=== PATIENT | female | born 1990 ===

== ENCOUNTER 2018-03-18 18:05 | Emergency (ER) | payer MEDICAID ==
[2018-03-18 18:53] VITALS: RESP 18
[2018-03-18] MEDS ORDERED: cefTRIAXone (Rocephin) 250 mg Inj IM STA (19:05)
--- NOTE | 2018-03-18 19:11 | ED PDOC ---
Arrival/HPI - General Historian: Patient - History of Present Illness Narrative History of Present Illness (Text): 03/18/18 20:11 27 y/o female with no significant PMH presents to the ED for treatment of confirmed gonorrhoea cervicitis. Pt was tested at [facility] for go norrhoea and chlamydia earlier this month and was not treated. Pt had unprotected sex with a new sexual partner while waiting for results. She is experiencing mild vaginal discharge. Partner is also here to be treated. Denies fever, chills, rash, abdominal pain, N/V, diarrhea, headache, dizziness, chest pain, SOB. <Sandra Babcock - Last Filed: 03/18/18 19:51> <Ben Alcaraz - Last Filed: 03/18/18 20:21> - General Chief Complaint: Female Genitourinary Time Seen by Provider: 03/18/18 18:13 Past Medical History - Provider Review Nursing Documentation Reviewed: Yes - Infectious Disease Hx of Infectious Diseases: None - Genitourinary/Gynecological Other/Comment: ectopic - Psychiatric Hx Substance Use: No - Surgical History Other/Comment: left ovary removed. <Sandra Babcock - Last Filed: 03/18/18 19:51> Family/Social History - Physician Review Nursing Documentation Reviewed: Yes Family/Social History: No Known Family HX Smoking Status: Light Smoker < 10 Cigarettes Daily Hx Alcohol Use: No Hx Substance Use: No <Sandra Babcock - Last Filed: 03/18/18 19:51> Allergies/Home Meds <Sandra Babcock - Last Filed: 03/18/18 19:51> <Ben Alcaraz - Last Filed: 03/18/18 20:21> Allergies/Adverse Reactions: Allergies No Known Allergies Allergy (Verified 03/18/18 18:44) Home Medications: Home Meds Medication Instructions Recorded Confirmed RX: No Known Home Med 03/18/18 03/18/18 Review of Systems - Physician Review All systems were reviewed & negative as marked: Yes - Review of Systems Constitutional: Normal. absent: Fevers Eyes: Normal ENT: Normal Respiratory: Normal Cardiovascular: Normal Gastrointestinal: Normal. absent: Abdominal Pain, Nausea, Vomiting Genitourinary Female: Vaginal Discharge. absent: Dysuria, Frequency, Hematuria, Vaginal Bleeding Musculoskeletal: Normal. absent: Arthralgias, Back Pain, Neck Pain Skin: Normal. absent: Rash Neurological: Normal Hemo/Lymphatic: Normal. absent: Adenopathy <Sandra Babcock - Last Filed: 03/18/18 19:51> Physical Exam Vital Signs Temp Pulse Resp BP Pulse Ox 03/18/18 18:53 98.7 F 89 18 136/79 100 Temperature: Afebrile Blood Pressure: Normal Pulse: Regular Respiratory Rate: Normal Appearance: Positive for: Well-Appearing, Non-Toxic, Comfortable Pain Distress: None Mental Status: Positive for: Alert and Oriented X 3 - Systems Exam Mouth: Present: Moist Mucous Membranes Neck: Present: Normal Range of Motion. No: MIDLINE TENDERNESS, Paraspinal Tenderness Respiratory/Chest: Present: Clear to Auscultation, Good Air Exchange. No: Respiratory Distress, Accessory Muscle Use Cardiovascular: Present: Regular Rate and Rhythm, Normal S1, S2. No: Murmurs Abdomen: No: Tenderness, Distention, Peritoneal Signs Back: Present: Normal Inspection. No: Midline Tenderness, Paraspinal Tenderness Upper Extremity: Present: Normal Inspection, Normal ROM, NORMAL PULSES Lower Extremity: Present: Normal Inspection, Normal ROM Neurological: Present: GCS=15, CN II-XII Intact, Speech Normal Skin: Present: Warm, Dry, Normal Color. No: Rashes Lymphatic: No: Cervical Adenopathy Psychiatric: Present: Alert, Oriented x 3, Normal Insight, Normal Concentration <Sandra Babcock - Last Filed: 03/18/18 19:51> Vital Signs Temp Pulse Resp BP Pulse Ox 03/18/18 18:53 98.7 F 89 18 136/79 100 <Ben Alcaraz - Last Filed: 03/18/18 20:21> Medical Decision Making ED Course and Treatment: 03/18/18 19:08 27 y/o female with no significant PMH presents to the ED for treatment of confirmed gonorrhoea cervicitis. Pt was tested at [facility] for gonorrhoea and chlamydia earlier this month and was not treated. Pt had unprotected sex with a new sexual partner while waiting for results. She is experiencing mild vaginal discharge. Partner is also here to be treated. Denies fever, chills, rash, abdominal pain, N/V, diarrhea, headache, dizziness, chest pain, SOB. Pts documentation from [facility] reviewed. Pt tested positive for N. gonorrhoea and was not treated. will treat for G/C -1 g azithromycin PO -250mg Rocephin IM Impression: cervicitis Plan: Followup with primary doctor within 2 days Return to ED if symptoms persist or worsen - Lab Interpretations I have reviewed the lab results: Yes - Medication Orders Current Medication Orders: Azithromycin (Zithromax) 1,000 mg PO STAT STA; Protocol Stop: 03/18/18 19:05 Ceftriaxone Sodium (Rocephin) 250 mg IM STAT STA; Protocol Stop: 03/18/18 19:06 <Sandra Babcock - Last Filed: 03/18/18 19:51> - Medication Orders Current Medication Orders: Discontinued Medications Azithromycin (Zithromax) 1,000 mg PO STAT STA; Protocol Stop: 03/18/18 19:05 Last Admin: 03/18/18 19:50 Dose: 1,000 mg Ceftriaxone Sodium (Rocephin) 250 mg IM STAT STA; Protocol Stop: 03/18/18 19:06 Last Admin: 03/18/18 19:50 Dose: 250 mg IM Administration Charges Document 03/18/18 19:50 RG (Rec: 03/18/18 19:50 RG [id number]) Injection Site MAR Injection Site Left Gluteus Medius Charges for Administration # of IM Administrations 1 <Ben Alcaraz - Last Filed: 03/18/18 20:21> - PA / POLICYHOLDER INFORMATION CLERK / Resident Statement MD/ has reviewed & agrees with the documentation as recorded. <Ben Alcaraz - Last Filed: 03/18/18 20:21> Disposition/Present on Arrival - Present on Arrival Any Indicators Present on Arrival: No History of DVT/PE: No History of Uncontrolled Diabetes: No Urinary Catheter: No History of Decub. Ulcer: No History Surgical Site Infection Following: None - Disposition Have Diagnosis and Disposition been Completed?: Yes Disposition Time: 19:20 <Sandra Babcock - Last Filed: 03/18/18 19:51> <Ben Alcaraz - Last Filed: 03/18/18 20:21> - Disposition Diagnosis: Cervicitis Disposition: HOME/ ROUTINE Patient Problems: Current Active Problems Problem Status Onset Cervicitis Acute Condition: GOOD Additional Instructions: Followup with primary doctor within 2 days Return to ED if symptoms persist or worsen Referrals: PCP,NO [Primary Care Provider] - Follow up with primary Forms: [facility] (C[place] Verdean), WORK NOTE
[2018-03-18 20:29] VITALS: BP 138/70; PULSE 86; TEMP 98.8; O2SAT 99
== END 2018-03-18 19:59 | disposition home or self-care (01) ==
LOC: ED 18:05 → MERGE 18:05 → ED 19:59
DX: N72 Inflammatory disease of cervix uteri (principal)
CPT/HCPCS: 96372; 99282; J0696

== ENCOUNTER 2018-04-05 16:24 | Emergency (ER) | payer MEDICAID ==
[2018-04-05 16:24] VITALS: BMI 23.3
[2018-04-05 16:52] VITALS: TEMP 98.1
[2018-04-05] MEDS ORDERED: cefTRIAXone (Rocephin) 250 mg Inj IM STA (17:00)
--- NOTE | 2018-04-05 17:04 | ED PDOC ---
Arrival/HPI - General Chief Complaint: Medical Clearance Time Seen by Provider: 04/05/18 16:40 Historian: Patient - History of Present Illness Narrative History of Present Illness (Text): 04/05/18 17:01 27yo female with no pmhx who present to ED requesting STD test and treatment. States tested positive for STD 3weeks ago and came here for the treatment. Notes that she went back to where she had the test and was told to go to the ED for a repeat STD test to verify treatment. Notes that she also had sex with someone she is not sure of his status. States the condom broke during sex. Reports right pelvic crampy pain that started 2days after she was treatment after drinking alcohol and worried that the alcohol interfered with the medication she received here in the ED. She denies nausea, vomiting, diarrhea, vaginal discharge, vaginal bleeding, fever, chills, back pain, any other complaint. LMP March 21. Past Medical History - Provider Review Nursing Documentation Reviewed: Yes - Infectious Disease Hx of Infectious Diseases: None - Cardiac Hx Cardiac Disorders: No - Pulmonary Hx Respiratory Disorders: No - Neurological Hx Neurological Disorder: No - HEENT Hx HEENT Disorder: No - Renal Hx Renal Disorder: No - Endocrine/Metabolic Hx Endocrine Disorders: No - Hematological/Oncological Hx Blood Disorders: No - Integumentary Hx Dermatological Disorder: No - Musculoskeletal/Rheumatological Hx Musculoskeletal Disorders: No - Gastrointestinal Hx Gastrointestinal Disorders: No - Genitourinary/Gynecological Hx Genitourinary Disorders: Yes Other/Comment: ectopic , STD - Psychiatric Hx Psychophysiologic Disorder: No Hx Substance Use: Yes - Surgical History Other/Comment: ECTOPIC 11/11/16 - Anesthesia Hx Anesthesia: No Family/Social History - Physician Review Nursing Documentation Reviewed: Yes Family/Social History: Unknown Family HX Smoking Status: Light Smoker < 10 Cigarettes Daily Hx Alcohol Use: Yes Hx Substance Use: Yes Substance used: PCP Allergies/Home Meds Allergies/Adverse Reactions: Allergies No Known Allergies Allergy (Verified 04/05/18 16:50) Home Medications: Home Meds Medication Instructions Recorded Confirmed No Known Home Med 04/05/18 04/05/18 Review of Systems - Physician Review All systems were reviewed & negative as marked: Yes - Review of Systems Constitutional: Normal Eyes: Normal ENT: Normal Respiratory: Normal Cardiovascular: Normal Gastrointestinal: Abdominal Pain. absent: Constipation, Diarrhea, Nausea, Vomiting, Hematochezia, Hematemesis Genitourinary Female: Normal Musculoskeletal: Normal Skin: Normal Neurological: Normal Endocrine: Normal Hemo/Lymphatic: Normal Psychiatric: Normal Physical Exam Vital Signs Reviewed: Yes Vital Signs Temp Pulse Resp BP Pulse Ox 04/05/18 16:51 98.1 F 77 19 110/72 98 Temperature: Afebrile Blood Pressure: Normal Pulse: Regular Respiratory Rate: Normal Appearance: Positive for: Well-Appearing, Non-Toxic, Comfortable Pain Distress: None Mental Status: Positive for: Alert and Oriented X 3 - Systems Exam Head: Present: Atraumatic, Normocephalic Pupils: Present: PERRL Extroacular Muscles: Present: EOMI Conjunctiva: Present: Normal Mouth: Present: Moist Mucous Membranes Neck: Present: Normal Range of Motion Respiratory/Chest: Present: Clear to Auscultation, Good Air Exchange. No: Respiratory Distress, Accessory Muscle Use Cardiovascular: Present: Regular Rate and Rhythm, Normal S1, S2. No: Murmurs Abdomen: Present: Tenderness (Mild right pelvic tenderness), Normal Bowel Sounds. No: Distention, Peritoneal Signs, Rebound, Guarding, McBurney's Point Tender, Rovsing's Sign Present Back: Present: Normal Inspection Upper Extremity: Present: Normal Inspection. No: Cyanosis, Edema Lower Extremity: Present: Normal Inspection. No: Edema Neurological: Present: GCS=15, CN II-XII Intact, Speech Normal Skin: Present: Warm, Dry, Normal Color. No: Rashes Psychiatric: Present: Alert, Oriented x 3, Normal Insight, Normal Concentration Disposition/Present on Arrival - Present on Arrival Any Indicators Present on Arrival: No History of DVT/PE: No History of Uncontrolled Diabetes: No Urinary Catheter: No History of Decub. Ulcer: No History Surgical Site Infection Following: None - Disposition Have Diagnosis and Disposition been Completed?: Yes Diagnosis: Venereal disease, Abdominal pain Disposition: HOME/ ROUTINE Disposition Time: 18:50 Patient Plan: Discharge Patient Problems: Current Active Problems Problem Status Onset Abdominal pain Acute Venereal disease Acute Condition: STABLE Discharge Instructions (ExitCare): Acute Abdomen (Belly Pain), Adult (DC) Additional Instructions: Follow up with your Doctor/[facility] [facility] Avoid sex until you get your result and if positive have your sexual partner treated Referrals: Wandy Lindsey MD [Medical Doctor] - Follow up with primary Forms: [facility] (Romanian)
[2018-04-05 18:30] LABS: URINE BILIRUBIN NEGATIVE (NEGATIVE); URINE BLOOD NEGATIVE (NEGATIVE); URINE GLUCOSE (UA) NEGATIVE (NEGATIVE); URINE LEUKOCYTE ESTERASE NEGATIVE Leu/uL (NEGATIVE); URINE PROTEIN NEGATIVE mg/dL (<30 mg/dL); URINE UROBILINOGEN 0.2 E.U./dL (<1 E.U./dL)
[2018-04-05 18:32] LABS: URINE APPEARANCE CLEAR (CLEAR); URINE COLOR LIGHT YELLOW (YELLOW)
[2018-04-05 23:42] VITALS: BP 115/70; PULSE 62; RESP 18; O2SAT 99
== END 2018-04-05 20:10 | disposition home or self-care (01) ==
LOC: ED 16:24
DX: A64 Unspecified sexually transmitted disease (principal); R10.9 Unspecified abdominal pain
CPT/HCPCS: 81003; 87491; 87591; 96372; 99283; J0696

== ENCOUNTER 2018-05-28 22:07 | Emergency (ER) | payer MEDICAID ==
[2018-05-28 22:11] VITALS: BMI 21.6
[2018-05-28 22:19] VITALS: RESP 18; TEMP 98.1
--- NOTE | 2018-05-28 22:23 | ED PDOC ---
Arrival/HPI - General Chief Complaint: Substance Abuse Time Seen by Provider: 05/28/18 22:15 Historian: Patient - History of Present Illness Narrative History of Present Illness (Text): 05/28/18 22:23 La Nena Meek is a 27 year old female, whose past medical history includes substance abuse, who presents to the Emergency department brought in by EMS for substance abuse. As per EMS, patient was found acting bizarrely, possible s ubstance abuse, while walking her dog with her son. Patient admits to smoking PCP tonight. Patient denies any fever, chills, chest pain, shortness of breath, nausea, vomiting, headache, dizziness, or any other complaints. Symptom Onset: Gradual Symptom Course: Unchanged Activities at Onset: Light Context: Home Past Medical History - Provider Review Nursing Documentation Reviewed: Yes - Infectious Disease Hx of Infectious Diseases: None - Cardiac Hx Cardiac Disorders: No - Pulmonary Hx Respiratory Disorders: No - Neurological Hx Neurological Disorder: No - HEENT Hx HEENT Disorder: No - Renal Hx Renal Disorder: No - Endocrine/Metabolic Hx Endocrine Disorders: No - Hematological/Oncological Hx Blood Disorders: No - Integumentary Hx Dermatological Disorder: No - Musculoskeletal/Rheumatological Hx Musculoskeletal Disorders: No - Gastrointestinal Hx Gastrointestinal Disorders: No - Genitourinary/Gynecological Hx Genitourinary Disorders: Yes Other/Comment: ectopic , STD - Psychiatric Hx Psychophysiologic Disorder: No Hx Substance Use: Yes - Surgical History Other/Comment: ECTOPIC 11/11/16 - Anesthesia Hx Anesthesia: No Hx Anesthesia Reactions: No Hx Malignant Hyperthermia: No Family/Social History - Physician Review Nursing Documentation Reviewed: Yes Family/Social History: Unknown Family HX Smoking Status: Light Smoker < 10 Cigarettes Daily Hx Alcohol Use: Yes Hx Substance Use: Yes Substance used: PCP Allergies/Home Meds Allergies/Adverse Reactions: Allergies No Known Allergies Allergy (Verified 04/21/18 16:00) Home Medications: Home Meds Medication Instructions Recorded Confirmed No Known Home Med 04/05/18 04/05/18 Review of Systems - Physician Review All systems were reviewed & negative as marked: Yes - Review of Systems Constitutional: Normal. absent: Fevers Eyes: Normal ENT: Normal Respiratory: Normal. absent: SOB, Cough Cardiovascular: Normal. absent: Chest Pain Gastrointestinal: Normal. absent: Abdominal Pain, Diarrhea, Nausea, Vomiting Genitourinary Female: Normal. absent: Dysuria, Frequency, Hematuria, Urine Output Changes Musculoskeletal: Normal. absent: Back Pain, Neck Pain Skin: Normal. absent: Rash Neurological: Normal. absent: Headache, Dizziness Endocrine: Normal Hemo/Lymphatic: Normal Psychiatric: Normal Physical Exam Vital Signs Reviewed: Yes Vital Signs Temp Pulse Resp BP Pulse Ox 05/28/18 22:17 98.1 F 114 H 18 153/88 H 100 05/28/18 22:11 98.6 F 112 H 20 99 Temperature: Afebrile Blood Pressure: Normal Pulse: Regular Respiratory Rate: Normal Appearance: Positive for: Well-Appearing, Non-Toxic, Comfortable Pain Distress: None Mental Status: Positive for: Alert and Oriented X 3 Finger Stick Blood Glucose: 89 - Systems Exam Head: Present: Atraumatic, Normocephalic Pupils: Present: PERRL Extroacular Muscles: Present: EOMI Conjunctiva: Present: Normal Mouth: Present: Moist Mucous Membranes Neck: Present: Normal Range of Motion Respiratory/Chest: Present: Clear to Auscultation, Good Air Exchange. No: Respiratory Distress, Accessory Muscle Use Cardiovascular: Present: Regular Rate and Rhythm, Normal S1, S2. No: Murmurs Abdomen: No: Tenderness, Distention, Peritoneal Signs Back: Present: Normal Inspection Upper Extremity: Present: Normal Inspection. No: Cyanosis, Edema Lower Extremity: Present: Normal Inspection. No: Edema Neurological: Present: GCS=15, CN II-XII Intact, Speech Normal Skin: Present: Warm, Dry, Normal Color. No: Rashes Psychiatric: Present: Alert, Oriented x 3, Normal Insight, Normal Concentration Medical Decision Making ED Course and Treatment: 05/28/18 22:23 Impression: 27 year old female brought in for substance abuse. Plan: -- Reassess and disposition Prior Visits: Notes and results from previous visits were reviewed. Progress Notes: 05/28/18 22:29 Pt agitated, yelling at staff. [place] ordered and placed in 4 point restraints. - Scribe Statement The provider has reviewed the documentation as recorded by the Silvino Khan Provider Scribe Attestation: All medical record entries made by the Scribe were at my direction and personally dictated by me. I have reviewed the chart and agree that the record accurately reflects my personal performance of the history, physical exam, medical decision making, and the department course for this patient. I have also personally directed, reviewed, and agree with the discharge instructions and disposition. Disposition/Present on Arrival - Present on Arrival Any Indicators Present on Arrival: No History of DVT/PE: No History of Uncontrolled Diabetes: No Urinary Catheter: No History of Decub. Ulcer: No History Surgical Site Infection Following: None - Disposition Have Diagnosis and Disposition been Completed?: Yes Diagnosis: PCP abuse Disposition: HOME/ ROUTINE Disposition Time: 05:49 Condition: GOOD Discharge Instructions (ExitCare): Drug Abuse and Drug Addiction (DC) Referrals: FAMILY PROVIDER,NO [Primary Care Provider] - Follow up with primary Wandy Lindsey MD [Medical Doctor] - Follow up with primary Forms: [facility] (Korean)
[2018-05-29 05:38] VITALS: O2SAT 100
[2018-05-29 06:01] VITALS: BP 118/85; PULSE 95
== END 2018-05-29 05:55 | disposition home or self-care (01) ==
LOC: ED 22:07
DX: F19.10 Other psychoactive substance abuse, uncomplicated (principal)
CPT/HCPCS: 82948; 96372; 99284; J3486